=== PATIENT | female | born 1990 | race Caucasian/White ===

== ENCOUNTER 2017-12-21 03:01 | Emergency (ER) | payer OTHER ==
[2017-12-21 03:09] VITALS: BP 143/80; PULSE 80; TEMP 98.6; BMI 30.9
--- NOTE | 2017-12-21 03:20 | PDOC ---
History of Present Illness - General Chief Complaint: Urinary Problem Stated Complaint: BURNING WITH URINATION/VAGINAL PAIN Time Seen by Provider: 12/21/17 03:14 History Source: Patient Exam Limitations: No Limitations - History of Present Illness Initial Comments: 12/21/17 03:17 This is a 27-year-old female who comes in complaining of dysuria and burning on urination. Patient denies history. Patient said symptoms just started this evening. Prior to coming in. Patient denies history of similar symptoms in the past there is been no fevers or chills. Patient said she didn't think she saw a little blood in her urine as well. Patient is otherwise healthy. Patient is sexually active but denies any vaginal discharge. PAST MEDICAL HISTORY: no significant history PAST SURGICAL HISTORY: no significant history FAMILY HISTORY: no pertinant history SOCIAL HISTORY: Pt lives with family and is employed. MEDICATIONS: reviewed ALLERGIES: As per nursing notes Review of Systems General: No fevers or chills, no weakness, no weight loss HEENT: No change in vision. No sore throat,. No ear pain CardioVascular: No chest pain or shortness of breath Respiratory:No cough, or wheezing. Gastrointestinal: no nausea, vomitting, diarrhea or constipation, No rectal bleeding Genitourinary: + dysuria,+hematuria, + frequency Musculoskeletal: No joint or muscle pain or swelling Neurologic: No headache, vertigo, dizziness or loss of consciousness Psychiatric: nor depression Skin: No rashes or easy bruising Endocrine: no increased thirst or abnormal weight change Allergic: no skin or latex allergy All other systems reviewed and normal GENERAL: The patient is awake, alert, and fully oriented, in no acute distress. HEAD: Normal with no signs of trauma. EYES: Pupils equal, round and reactive to light, extraocular movements intact, sclera anicteric, conjunctiva clear. EXTREMITIES: Normal range of motion, no edema. NEUROLOGICAL: Normal speech, normal gait. grossly intact PSYCH: Normal mood, normal affect. SKIN: Warm, Dry, normal turgor, no rashes or lesions noted. 12/21/17 03:18 Patient's urinalysis was positive for red cells white cells and bacteria. Patient started on Macrobid and Pyridium. Patient discharged back Past History - Past Medical History Allergies/Adverse Reactions: Allergies Allergy/AdvReac Type Severity Reaction Status Date / Time No Known Allergies Allergy Verified 12/21/17 03:03 Home Medications: Ambulatory Orders No Home Medications 0 dose .ROUTE UTDICT 04/07/13 Nitrofurantoin Monohyd/M-Cryst [Macrobid -] 100 mg PO BID #14 capsule 12/21/17 Phenazopyridine HCl [Pyridium] 100 mg PO TID #6 tablet 12/21/17 COPD: No Other medical history: ANXIETY - Suicide/Smoking/Psychosocial Hx Smoking Status: Yes Smoking History: Current every day smoker Have you smoked in the past 12 months: Yes Number of Cigarettes Smoked Daily: 10 Information on smoking cessation initiated: No Hx Alcohol Use: No Drug/Substance Use Hx: No Substance Use Type: None *Physical Exam - Vital Signs Last Vital Signs Temp Pulse Resp BP Pulse Ox 98.6 F 80 16 143/80 100 12/21/17 03:04 12/21/17 03:04 12/21/17 03:04 12/21/17 03:04 12/21/17 03:04 *DC/Admit/Observation/Transfer Diagnosis at time of Disposition: Cystitis - Discharge Dispostion Disposition: HOME Condition at time of disposition: Stable Decision to Admit order: No - Prescriptions Prescriptions: Nitrofurantoin Monohyd/M-Cryst [Macrobid -] 100 mg PO BID #14 capsule Phenazopyridine HCl [Pyridium] 100 mg PO TID #6 tablet - Referrals - Patient Instructions Additional Instructions: Take Macrobid 1 tablet twice a day for 7 days for the infection. Take Pyridium 1 tablet 3 times a day for 2 days. Return to the emergency department immediately with ANY new, persistent or worsening symptoms. Continue any medications as previously prescribed by your physician. You should follow up with your primary doctor as soon as possible regarding today's emergency department visit. . Please make sure your doctor reviews the results of your emergency evaluation. Thank you for coming to the Emergency Department today for your care. It was a pleasure to see you today. Please note that your evaluation is INCOMPLETE until you follow-up with your doctor. - Post Discharge Activity
[2017-12-21 04:21] LABS: URINE APPEARANCE CLOUDY; URINE COLOR YELLOW; URINE GLUCOSE (UA) NEGATIVE (NEGATIVE)
[2017-12-21 04:22] LABS: URINE BILIRUBIN NEGATIVE (<2.0 mg/dL); URINE KETONE NEGATIVE (NEGATIVE); URINE LEUK ESTERASE 3+ (NEGATIVE); URINE NITRITE NEGATIVE (NEGATIVE); URINE PROTEIN 2+ (NEGATIVE); URINE UROBILINOGEN NORMAL mg/dL (0.2-1.0)
[2017-12-21 04:24] LABS: EPI CELLS FEW /HPF (FEW); URINE MUCUS RARE
[2017-12-21 04:39] LABS: HCG,QUALITATIVE URINE NEGATIVE
[2017-12-21] MEDS ORDERED: PHENAZOPYRIDINE HCL 100 MG TABLET (FP) PO ONE (04:42)
[2017-12-21] MEDS ORDERED: NITROFURANTOIN MACROCRYSTAL 50 MG CAPSULE (FP) PO SCH (04:45)
[2017-12-21] MEDS ORDERED: NITROFURANTOIN MACROCRYSTAL 50 MG CAPSULE (FP) ONE (04:45)
[2017-12-21] MEDS ORDERED: PHENAZOPYRIDINE HCL 100 MG TABLET (FP) ONE (04:46)
== END 2017-12-21 04:50 | disposition home or self-care (01) ==
LOC: FER 03:01
DX: N30.91 Cystitis, unspecified with hematuria (principal); F17.210 Nicotine dependence, cigarettes, uncomplicated; F41.9 Anxiety disorder, unspecified
CPT/HCPCS: 81003; 81015; 84703; 87086; 87186; 99282-25

== ENCOUNTER 2020-07-12 12:10 | Emergency (ER) | payer OTHER ==
[2020-07-12 12:17] VITALS: BP 140/86; PULSE 89; TEMP 98.8; BMI 30.1
[2020-07-12] MEDS ORDERED: DOXYCYCLINE HYCLATE 100 MG CAPSULE PO ONE ×2 (13:14→13:17)
== END 2020-07-12 13:36 | disposition home or self-care (01) ==
LOC: FER 12:10
DX: N73.9 Female pelvic inflammatory disease, unspecified (principal)
CPT/HCPCS: 36415; 81003; 84703; 87086; 87491; 87591; 99284-25

== ENCOUNTER 2021-07-31 21:34 | Inpatient (IN) | payer OTHER ==
[2021-07-31 21:49] VITALS: BMI 31.8
[2021-07-31] MEDS ORDERED: ONDANSETRON 4 MG/2 ML VIAL IVPB PRN (22:22)
[2021-07-31] MEDS ORDERED: oxyCODONE HCL 5 MG TABLET PO PRN (22:22)
[2021-07-31] MEDS ORDERED: SODIUM CHLORIDE 0.9% 500 ML INFUS.BAG IV ONE (22:30)
[2021-07-31 22:51] LABS: BASO % 0.2 % (0-2.0); HEMATOCRIT 33.8 % (32.4-45.2); HEMOGLOBIN 11.4 GM/dL (10.7-15.3); LYMPH % 4.9 % (8-40); MCH 29.5 pg (25.7-33.7); MCHC 33.8 g/dl (32.0-36.0); MEAN CELL VOLUME 87.4 fl (80-96); MEAN PLT VOLUME 8.4 fl (7.5-11.1); NEUT % 90.9 % (42.8-82.8); PLATELET COUNT 289 10^3/uL (134-434); RBC 3.87 M/mm3 (3.60-5.2); RDW 12.2 % (11.6-15.6); WHITE BLOOD COUNT 14.5 K/mm3 (4.0-10.0)
[2021-07-31 22:58] LABS: INR 1.04 (0.83-1.09)
[2021-07-31 23:14] LABS: ALBUMIN 3.7 g/dl (3.4-5.0); CALCIUM 8.2 mg/dL (8.5-10.1)
[2021-07-31] MEDS: LACTATED RINGERS SOLUTION 1,000 ML IV SCH (23:15)
[2021-07-31 23:18] LABS: CREATININE 0.9 mg/dL (0.55-1.3)
[2021-07-31 23:19] LABS: BILIRUBIN,TOTAL 0.3 mg/dL (0.2-1); TOT PROT 7.2 g/dl (6.4-8.2)
[2021-07-31] MEDS ORDERED: SUCCINYLCHOLINE CHLORIDE 200 MG/10 ML SYRINGE ONE (23:57)
[2021-07-31] MEDS ORDERED: PROPOFOL 20 ML ONE (23:57)
[2021-07-31] MEDS ORDERED: MIDAZOLAM HCL 2 MG/2 ML SINGLE DOSE VIAL ONE (23:57)
[2021-07-31] MEDS ORDERED: HYDROmorphone HCl 2 MG/ML VIAL ONE (23:58)
[2021-08-01] MEDS ORDERED: ROCURONIUM BROMIDE 50 MG/5 ML SYRINGE ONE (00:16)
[2021-08-01] MEDS ORDERED: ceFAZolin SODIUM 1 GM VIAL IVPB ONE (00:20)
[2021-08-01] MEDS ORDERED: ePHEDrine SULFATE 50 MG/1 ML AMPULE ONE (00:23)
[2021-08-01] MEDS ORDERED: NEOSTIGMINE METHYLSULFATE 0.5 MG/ML - 10 ML MDV ONE (01:21)
[2021-08-01] MEDS ORDERED: PROPOFOL 20 ML ONE (01:41)
[2021-08-01] MEDS ORDERED: ONDANSETRON 4 MG/2 ML VIAL IVPUSH PRN (02:07)
[2021-08-01] MEDS: LACTATED RINGERS SOLUTION 1,000 ML IV SCH (02:45)
[2021-08-01 05:35] VITALS: BP 106/47; PULSE 71
[2021-08-01 09:46] LABS: BASO % 0.1 % (0-2.0); HEMATOCRIT 26.4 % (32.4-45.2); LYMPH % 9.5 % (8-40); MCH 29.9 pg (25.7-33.7); MEAN CELL VOLUME 87.9 fl (80-96); MEAN PLT VOLUME 8.3 fl (7.5-11.1); MONO % 5.4 % (3.8-10.2); PLATELET COUNT 233 10^3/uL (134-434); RBC 3.01 M/mm3 (3.60-5.2); RDW 12.4 % (11.6-15.6); WHITE BLOOD COUNT 8.6 K/mm3 (4.0-10.0)
[2021-08-01 10:18] LABS: CALCIUM 8.1 mg/dL (8.5-10.1)
[2021-08-01 10:19] LABS: MAGNESIUM 2.3 mg/dL (1.8-2.4)
[2021-08-01 10:21] LABS: CREATININE 0.7 mg/dL (0.55-1.3)
[2021-08-01 10:22] LABS: TOT PROT 5.8 g/dl (6.4-8.2)
[2021-08-01 10:23] LABS: BILIRUBIN,TOTAL 0.3 mg/dL (0.2-1)
[2021-08-01 11:48] VITALS: TEMP 99
== END 2021-08-01 13:34 | disposition home or self-care (01) | DRG 909 ==
LOC: JER 21:34 → JERBED 22:31 → J6S 08-01 03:19
PROVIDERS: ADMIT Hospitalist
PROC: 0HCU0ZZ Extirpation of Matter from Left Breast, Open Approach (ICD-10-PCS; principal; 2021-08-01)
PROC: 0W380ZZ Control Bleeding in Chest Wall, Open Approach (ICD-10-PCS; 2021-08-01)
DX: L76.32 Postprocedural hematoma of skin and subcutaneous tissue following other procedure (principal); N64.89 Other specified disorders of breast; Y83.8 Other surgical procedures as the cause of abnormal reaction of the patient, or of later complication, without mention of misadventure at the time of the procedure; D72.829 Elevated white blood cell count, unspecified; Z41.1 Encounter for cosmetic surgery
CPT/HCPCS: 36415; 80053; 81025; 83735; 85025; 85610; 86850; 86900; 86901; 94010; 94760; 99285-25; C9803-CS; U0003; U0005